=== PATIENT | female | born 1990 | race Two or more races ===

== ENCOUNTER → 2024-08-26 | Outpatient (CLI) | payer OTHER, SELFPAY ==
--- NOTE | 2024-08-26 08:53 | XR_ITS ---
Examination: Foot, right, 3 views Technique: AP, oblique, lateral views foot, 3 views Date and time of exam: August 26, 2024 0902 hours INDICATIONS: Right foot redness swelling and pain beginning one month ago worse the last 3 days FINDINGS: Moderate bunion deformity Soft tissue swelling near the cuboid No fracture Suspicious for early cortical bone erosion involving the base of the fifth metatarsal IMPRESSION: Suspicious for early cortical bone erosion involving the base of the fifth metatarsal Consider MRI foot without contrast follow-up to best assess for soft tissue abscess, early osteomyelitis
== END | disposition home or self-care (01) ==
PROVIDERS: PCP Family Medicine; Referring Provider Family Medicine; Visit Provider Family Medicine
DX: M79.671 Pain in right foot (principal)
CPT/HCPCS: 73630

== ENCOUNTER → 2024-09-19 | Outpatient (CLI) | payer OTHER, SELFPAY ==
--- NOTE | 2024-09-19 08:10 | XR_ITS ---
Examination: Foot, right, 3 views Technique: AP, oblique, lateral views foot, 3 views Date and time of exam: September 19, 2024 0826 hours INDICATIONS: Right foot and ankle pain beginning one month ago FINDINGS: Mild to moderate hallux valgus bunion deformity No fracture or dislocation Pes planus Mild narrowing tibiotalar joint No cortical bone destruction IMPRESSION: Mild to moderate hallux valgus bunion deformity Pes planus
--- NOTE | 2024-09-19 08:10 | XR_ITS ---
EXAMINATION: Ankle, left 3 views . Technique: Ankle AP, oblique, lateral 3 views Date and time of exam: September 19, 2024 0826 hours INDICATIONS: Right ankle pain beginning one month ago. FINDINGS: Pes planus No fracture or dislocation Mild narrowing tibiotalar joint IMPRESSION: No fracture Pes planus Mild narrowing tibiotalar joint
== END | disposition home or self-care (01) ==
LOC: SLAB 08:03 → SDIM 08:06
PROVIDERS: PCP Family Medicine; Referring Provider Family Medicine; Visit Provider Family Medicine
DX: M21.41 Flat foot [pes planus] (acquired), right foot (principal); M25.871 Other specified joint disorders, right ankle and foot; M20.11 Hallux valgus (acquired), right foot; M21.611 Bunion of right foot
CPT/HCPCS: 73610; 73630

== ENCOUNTER → 2025-07-07 | Outpatient (CLI) | payer OTHER, SELFPAY ==
[2025-07-07 09:28] LABS: Collection Type, Urine Clean Catch
[2025-07-07 10:54] LABS: Bacteria,Urine Rare; Bilirubin,Urine Negative (Negative); Blood,Urine Negative (Negative); Clarity,Urine Clear (Clear/Hazy); Color,Urine Lt-Yellow (Lt Yel-Yel); Culture Indicated,Urine Not Indicated; Glucose, Urine Negative (Negative); Ketones,Urine Negative (Negative); Leukocyte Esterase,Urine Negative (Negative); Nitrite,Urine Negative (Negative); PH,Urine 8.0 (5.0-7.0); Protein,Urine Negative (Neg - Trace); RBC,Urine < 1 /hpf (0-3); Specific Gravity,Urine 1.015 (1.001-1.035); Squamous Epithelial Cell,Urine 1 /hpf (0-5); Urobilinogen,Urine Negative mg/dL (0.0-1.0); WBC,Urine < 1 /hpf (0-5)
== END | disposition home or self-care (01) ==
LOC: SLAB 09:16
PROVIDERS: PCP Family Medicine; Referring Provider Family Medicine; Visit Provider Family Medicine
DX: N39.0 Urinary tract infection, site not specified (principal)
CPT/HCPCS: 81001

== ENCOUNTER → 2025-08-28 | Outpatient (CLI) | payer OTHER, SELFPAY ==
--- NOTE | 2025-08-28 10:54 | XR_ITS ---
Examination: Foot bilateral, 6 views Technique: AP, oblique, lateral views each foot total 6 views Date and time of exam: August 28, 2025, 1134 hours INDICATION: Bilateral foot pain beginning 1 week ago. FINDINGS: Bilateral mild to moderate bunion deformities No fracture or dislocation involving either foot Bilateral pes planus No erosive or other significant arthritic change IMPRESSION: Bilateral mild to moderate hallux valgus bunion deformities No fractures Bilateral pes planus
== END | disposition home or self-care (01) ==
PROVIDERS: PCP Family Medicine; Referring Provider Family Medicine; Visit Provider Family Medicine
DX: M20.12 Hallux valgus (acquired), left foot (principal); M20.11 Hallux valgus (acquired), right foot; M21.612 Bunion of left foot; M21.611 Bunion of right foot; M21.42 Flat foot [pes planus] (acquired), left foot; M21.41 Flat foot [pes planus] (acquired), right foot
CPT/HCPCS: 73630